=== PATIENT | female | born 1995 | race Caucasian/White ===

== ENCOUNTER 2021-08-18 02:16 | Emergency (ER) | payer MEDICAID ==
[~2021-08-18] VITALS: Ht 162.6 cm; Wt 59.0 kg
[2021-08-18] MEDS ORDERED: LIDOCAINE HCL/EPINEPHRINE 1%-EPI 1:100,000 20 ML VIAL INFIL ONE (02:30)
[2021-08-18] MEDS ORDERED: TETANUS, DIPHTHERIA, PERTUSSIS VAC/PF 0.5ML (>10YR OLD) IM ONE (02:30)
[2021-08-18] MEDS ORDERED: IBUPROFEN 600MG TABLET PO ONE (02:30)
[2021-08-18] MEDS ORDERED: LIDOCAINE HCL/EPINEPHRINE 1%-EPI 1:100,000 10 ML VIAL IJ SCH (02:45)
[2021-08-18] MEDS ORDERED: LIDOCAINE HCL/EPINEPHRINE 1%-EPI 1:100,000 20 ML VIAL INFIL SCH (03:00)
[2021-08-18] MEDS ORDERED: CEPH500C2 MT (04:16)
[2021-08-18] MEDS ORDERED: BACITRACIN ZINC OINT UDPKT TOP ONE (04:30)
[2021-08-18 04:51] VITALS: BP 105/56
== END 2021-08-18 04:54 | disposition home or self-care (01) ==
LOC: ER 02:16
DX: S71.142A Puncture wound with foreign body, left thigh, initial encounter (principal); X95.9XXA Assault by unspecified firearm discharge, initial encounter; Y07.6 Multiple perpetrators of maltreatment and neglect; R03.0 Elevated blood-pressure reading, without diagnosis of hypertension; Y93.89 Activity, other specified; Y92.810 Car as the place of occurrence of the external cause
CPT/HCPCS: 12032; 73551; 90471; 90715; 99284; J3490; Z7610; 12002; 99283